=== PATIENT | female | born 1985 ===

== ENCOUNTER → 2022-03-08 | Outpatient (CLI) | payer MEDICAID | END | disposition home or self-care (01) | LOC: Rad HDHVI 14:03 | PROVIDERS: ATTEND Internal Medicine Cardiovascular Disease | DX: R07.89 Other chest pain (principal); R42 Dizziness and giddiness | CPT/HCPCS: 93306 ==

== ENCOUNTER → 2022-05-14 | Outpatient (CLI) | payer MEDICAID ==
[~2022-05-14] VITALS: Ht 162.6 cm; Wt 71.2 kg
== END | disposition home or self-care (01) ==
LOC: Rad HDHVI 14:15
PROVIDERS: ATTEND Internal Medicine Cardiovascular Disease
DX: R00.2 Palpitations (principal); R07.9 Chest pain, unspecified; R06.02 Shortness of breath; I95.9 Hypotension, unspecified; D64.9 Anemia, unspecified; R42 Dizziness and giddiness; R53.83 Other fatigue; Z82.49 Family history of ischemic heart disease and other diseases of the circulatory system
CPT/HCPCS: 78452; 93017; 96374; A9500